=== PATIENT | male | born 1945 | race Hispanic/Latino ===

== ENCOUNTER → 2022-05-08 | Outpatient (CLI) | payer OTHER ==
[~2022-05-08] MED LIST: ADVAIR 250-501 EACH INH; CARVEDILOL12.5 MG PO; CLONAZEPAM0.5 MG PO; CYANOCOBAL1000 MCG/M IM; HYDRALAZINE HCL50 MG PO; LISINOPRIL40 MG PO; METFORMIN HCL500 MG PO; NYSTATIN100000 UNI PO; PANTOPRAZOLE SO40 MG PO; PRAVASTATIN SOD20 MG PO; PROAIR HFA INH8.5 GM INH; TERAZOSIN HCL5 MG PO; TYLENOL EXTRA500 MG PO; ULTRAM50 MG PO; VITAMIN B-12 IM
== END ==
LOC: RAD 12:39
PROVIDERS: ATTEND Internal Medicine
DX: U09.9 Post COVID-19 condition, unspecified (principal); M47.812 Spondylosis without myelopathy or radiculopathy, cervical region
CPT/HCPCS: 71046; 72050

== ENCOUNTER → 2022-08-28 | Outpatient (CLI) | payer MEDICARE | LOC: CT 08:21 | PROVIDERS: ATTEND Internal Medicine Critical Care Medicine | DX: R91.1 Solitary pulmonary nodule (principal) | CPT/HCPCS: 71250 ==

== ENCOUNTER → 2025-05-16 | Day surgery (SDC) | payer MEDICARE ==
[2025-05-11 13:29] LABS: BASOPHILS % 0.4 % (0.0-1.0); EOSINOPHILS % 2.6 % (0.0-6.0); LYMPHOCYTES % 42.0 % (18.0-39.1); MONOCYTES % 6.1 % (4.4-11.3); NEUTROPHILS % 48.8 % (38.7-80.0); RED CELL DISTRIBUTION WIDTH 12.3 % (11.7-14.4)
[2025-05-11 13:59] LABS: EST GLOMERULAR FILTRATION RATE 50.0 ML/MIN (>=60)
[~2025-05-16] MED LIST changes: +AMLODIPINE BESYL5 MG PO; +CEFAZOLIN SODIUM 2 GM ONE; +CENTRUM SILVER1 EAC9 PO; +DEXAMETHASONE SOD PHOS INJ 4 MG/ML SDV ONE; +DOXEPIN HCL10 MG PO; +EPHEDRINE SULFATE INJ 50 MG/ML VIAL ONE; +FAMOTIDINE 20 MG/2 ML VIAL IV ONE; +FENTANYL CITRATE/PF 100MCG/2 ML INJ ONE; +FLOMAX0.4 MG PO; +FOLIC ACID0.4 MG PO; +GENTAMICIN 80MG/NS 100 ML 200 ML IV ONE; +GLYCOPYRROLATE INJ 0.2 MG/ML VIAL ONE; +LACTATED RINGER'S 1,000 ML ONE; +LIDOCAINE HCL 2% LOCAL INJ 5 ML SDV VIAL INJ ONE; +LISINOPRIL30 MG PO; +METFORMIN HCL500 M1 PO; +ONDANSETRON HCL INJ 2MG/ML 2ML 2 MG/ML VIAL ONE; +PROPOFOL IV EMULSION 10 MG/ML 20 ML VIAL ONE; +VITAMIN D31250 MCG PO
[2025-05-16] MEDS: PHENAZOPYRIDINE HCL 100 MG TAB ONE (13:15)
[2025-05-16] MEDS: ACETAMINOPHEN/CODEINE 300MG - 30MG TAB ONE (13:30)
[2025-05-16 14:50] VITALS: BP 156/74; PULSE 83; RESP 18; O2SAT 96
== END | disposition home or self-care (01) ==
LOC: OR 09:29
PROVIDERS: ATTEND Urology
DX: N47.5 Adhesions of prepuce and glans penis (principal); N21.0 Calculus in bladder; N39.0 Urinary tract infection, site not specified; R31.0 Gross hematuria; N35.919 Unspecified urethral stricture, male, unspecified site; Z46.6 Encounter for fitting and adjustment of urinary device; Z48.02 Encounter for removal of sutures; Z85.46 Personal history of malignant neoplasm of prostate; Z92.3 Personal history of irradiation; I10 Essential (primary) hypertension; K21.9 Gastro-esophageal reflux disease without esophagitis; E11.9 Type 2 diabetes mellitus without complications; Z79.84 Long term (current) use of oral hypoglycemic drugs; F41.8 Other specified anxiety disorders; I44.0 Atrioventricular block, first degree; Z01.810 Encounter for preprocedural cardiovascular examination; Z01.812 Encounter for preprocedural laboratory examination; Z79.899 Other long term (current) drug therapy
CPT/HCPCS: 36415 ×2; 52318; 54163; 71046; 74420; 80048; 82948; 84550; 85025; 87086; 88300; 93005; J1100; J1308; J1580; J2003; J2405; J2704; J3010; J7121

== ENCOUNTER → 2025-06-06 | Outpatient (REF) | payer MEDICARE ==
[~2025-06-06] MED LIST changes: -CEFAZOLIN SODIUM 2 GM ONE; -DEXAMETHASONE SOD PHOS INJ 4 MG/ML SDV ONE; -EPHEDRINE SULFATE INJ 50 MG/ML VIAL ONE; -FAMOTIDINE 20 MG/2 ML VIAL IV ONE; -FENTANYL CITRATE/PF 100MCG/2 ML INJ ONE; -GENTAMICIN 80MG/NS 100 ML 200 ML IV ONE; -GLYCOPYRROLATE INJ 0.2 MG/ML VIAL ONE; -LACTATED RINGER'S 1,000 ML ONE; -LIDOCAINE HCL 2% LOCAL INJ 5 ML SDV VIAL INJ ONE; -ONDANSETRON HCL INJ 2MG/ML 2ML 2 MG/ML VIAL ONE; -PROPOFOL IV EMULSION 10 MG/ML 20 ML VIAL ONE
== END ==
LOC: RAD 14:37
PROVIDERS: ATTEND Internal Medicine
DX: R06.02 Shortness of breath (principal)
CPT/HCPCS: 71046